=== PATIENT | male | born 1935 | race Caucasian/White ===

== ENCOUNTER 2019-05-19 11:45 | Inpatient (IN) | payer OTHER ==
[~2019-05-19] VITALS: Ht 162.6 cm; Wt 65.8 kg
[2019-05-19] MEDS ORDERED: LEVOXYL50 MCG PO (13:00)
[2019-05-19] MEDS ORDERED: TOPROL XL100 M1 PO (13:01)
[2019-05-19] MEDS ORDERED: QUINAPRIL HCL40 MG PO (13:01)
[2019-05-19] MEDS ORDERED: METFORMIN HCL500 M3 PO (13:02)
[2019-05-19] MEDS ORDERED: ATORVASTATIN CA20 MG PO (13:02)
[2019-05-19] MEDS ORDERED: AMLODIPINE PO (13:02)
[2019-05-19] MEDS ORDERED: [UNRECOGNIZED DRUG - OTHER] PO (13:03)
[2019-05-27] MEDS ORDERED: AMLODIPINE BESYL5 MG PO (07:55)
[2019-05-27] MEDS ORDERED: FAMOTIDINE40 MG PO (07:55)
[2019-05-29] MEDS ORDERED: INTESTINEX680 M1 PO (11:01)
[2019-05-29] MEDS ORDERED: PERCOCET 5-3251 EACH PO (11:01)
[2019-05-29] MEDS ORDERED: RECTICARE30 GM TOP (11:02)
== END 2019-05-29 15:02 | disposition home or self-care (01) | DRG 348 ==
LOC: O/R 05-27 06:00 → SURH 05-27 06:00
PROVIDERS: ADMIT Surgery
PROC: 3E0T3BZ Introduction of Anesthetic Agent into Peripheral Nerves and Plexi, Percutaneous Approach (ICD-10-PCS; 2019-05-27)
PROC: 0DU Gastrointestinal System, Supplement (ICD-10-PCS; principal; 2019-05-27 07:00)
DX: K62.4 Stenosis of anus and rectum (principal); K62.5 Hemorrhage of anus and rectum; I11.9 Hypertensive heart disease without heart failure; E03.8 Other specified hypothyroidism; E11.9 Type 2 diabetes mellitus without complications; Z79.4 Long term (current) use of insulin; E78.00 Pure hypercholesterolemia, unspecified